=== PATIENT | male | born 1985 | race Hispanic/Latino ===

== ENCOUNTER → 2025-06-25 | Day surgery (SDC) | payer BC ==
[2025-06-21 11:01] LABS: BASOPHILS % 0.8 % (0.0-1.0); EOSINOPHILS % 3.2 % (0.0-6.0); LYMPHOCYTES % 28.0 % (18.0-39.1); MONOCYTES % 4.0 % (4.4-11.3); NEUTROPHILS % 63.6 % (38.7-80.0); RED CELL DISTRIBUTION WIDTH 13.2 % (11.7-14.4)
[2025-06-21 11:25] LABS: EST GLOMERULAR FILTRATION RATE 116.0 ML/MIN (>=60)
[~2025-06-25] MED LIST: ACETAMINOPHEN 1000 MG/100 ML 100 ML IV ONE; ATIVAN0.5 MG PO; AZOR 10-40 MG1 EACH PO; BENZONATATE200 MG PO; FENTANYL CITRATE/PF 100MCG/2 ML INJ ONE; OZEMPIC0.25 MG/02 SC; PHENYLEPHRINE HCL 1% 10 MG/ML VIAL ONE; PROPOFOL IV EMULSION 10 MG/ML 20 ML VIAL ONE; ROCURONIUM BROMIDE 1 ML IV ONE; SEVOFLURANE INHAL SOLN 250 ML PEN BTL ONE; SUCCINYLCHOLINE CHLORIDE 20 MG/ML 10ML VIAL ONE; SUGAMMADEX SODIUM 200 MG/2 ML VIAL IV ONE; VIT D PO
[2025-06-25] MEDS: LACTATED RINGER'S 1,000 ML ONE (08:41)
[2025-06-25 12:29] VITALS: TEMP 97.6
[2025-06-25] MEDS: FENTANYL CITRATE/PF 100MCG/2 ML INJ ONE (12:37)
[2025-06-25] MEDS: HYDROCODONE/APAP 7.5MG-325MG 1 EA TAB ONE (13:10)
[2025-06-25 13:55] VITALS: BP 132/71; PULSE 80; RESP 16; O2SAT 96
== END | disposition home or self-care (01) ==
LOC: OR 08:08
PROVIDERS: ATTEND Surgery
DX: K43.6 Other and unspecified ventral hernia with obstruction, without gangrene (principal); E66.813 Obesity, class 3; I10 Essential (primary) hypertension; E11.9 Type 2 diabetes mellitus without complications; Z68.44 Body mass index [BMI] 60.0-69.9, adult; Z79.85 Long-term (current) use of injectable non-insulin antidiabetic drugs; Z79.899 Other long term (current) drug therapy; Z01.810 Encounter for preprocedural cardiovascular examination; Z01.812 Encounter for preprocedural laboratory examination
CPT/HCPCS: 36415 ×2; 49594; 80048; 82948; 85025; 88302; 93005; C1781; J0131; J0330; J2371; J2704; J3010; J7121